=== PATIENT | female | born 1960 | race Caucasian/White ===

== ENCOUNTER 2017-02-04 10:33 | Emergency (ER) | payer OTHER ==
[~2017-02-04] VITALS: Ht 162.6 cm; Wt 90.0 kg
[~2017-02-04 10:33] MED LIST: ACIPHEX20 MG PO; ALLEGRA60 MG PO; AMOXICILLIN/CL875 MG PO; ANTI-FUNGAL12 TOP; ATENOLOL25 MG PO; AUGMENTIN875 MG PO; AUGMENTIN875TAB PO; BACLOFEN10 MG PO; BENZONATATE200 MG PO; BUSPIRONE5 MG PO; CALCIUM + D600 MG PO; CALCIUM600 M2 OR; CARAFATE1 GM PO; CLARITIN10 M1 PO; COZAAR50 MG PO; CYCLOBENZAPR10 MG PO; DIFLUCAN150 MG OR; DIFLUCAN150 MG PO; DOXYCYCL HYC100 MG PO; ENALAPRIL20 MG OR; EQ IBUPROFEN200 MG PO; FLEXERIL PO; FLEXERIL10 MG PO; FLONASE NASAL50 MCG; FLORASTOR250 M1 PO; GABAPENTIN300 MG PO; GLIPIZIDE5 M2 PO; GYNE-LOTRIMIN1 % VA; HYCODAN5 MG PO; IBUPROFEN200 M1 OR; IBUPROFEN200 MG PO; IBUPROFEN800 MG PO; K-DUR/KLOR-CON10 MEQ OR; KEFLEX500 M1 PO; KEFLEX500 MG PO; LASIX20 MG PO; LASIX40 MG OR; LIDOCAINE; LORTAB 5 OR; LORTAB5 OR; MEDDOSEPAK PO; METFORMIN HCL1000 MG PO; METFORMIN1000 MG PO; METFORMIN500 M2 OR; METFORMIN500 MG PO; MOTRIN800 MG PO; MULTIVITAM10 PO; NORCO1 TA1 PO; OMEPRAZOLE20 MG OR; OMEPRAZOLE40 MG PO; PATANASE0.6 % NAS; PHENERGAN12.5 MG/TA PO; PHENERGAN25 MG/ML IM; PREDNISONE20 MG PO; PROMETHAZINE25 MG OR; PROTONIX40 M2 PO; RANITIDINE150 M1 PO; RANITIDINE75 M1 PO; REGLAN10 MG OR; REGLAN10 MG PO; ROBITUSSIN200 MG/10 PO; SIMVASTATIN10 MG OR; SIMVASTATIN40 MG PO; SINGULAIR10 MG PO; TESSALON PER100 MG PO; TESSALON200 MG PO; TRAMADOL HCL50 MG PO; TRAMADOL HYDROC50 MG PO; VALIUM5 MG PO; VENLAFAXINE37.5 M2 PO; VITAMIN D2000 UNIT OR; VITAMIN D32000 UNIT PO; VITAMIN OR; XYZAL5 MG PO; ZITHROMAX250 MG PO; ZITHROMAX500 MG PO; ZPAK OR; ZPAK PO; ZYRTEC-D AL1 OR; ZYRTEC10 M5 PO; ZYRTEC10 MG OR; ZYRTEC10 MG PO; [UNRECOGNIZED DRUG - OTHER] VA
[2017-02-04 11:07] LABS: HEMATOCRIT 45.5 % (37.0-47.0); IMMATURE GRANULOCYTES 0.3 % (0.0-1.0); MEAN CELL VOLUME 85.4 fL CALC (80.0-100.0); MEAN CORPUSCULAR HGB 28.1 pG CALC (26.0-32.0); NEUT# 4.56 thou/uL (2.00-7.15); RED BLOOD COUNT 5.33 mill/uL (4.20-5.60); RED CELL DISTRI WIDTH 13.2 % (11.5-15.5)
[2017-02-04 11:17] LABS: ALBUMIN 4.7 g/dL (3.2-5.0); ALKALINE PHOSPHATASE 110 u/l (38-126); ANION GAP 16 (6-22 (CALC)); BILIRUBIN, TOTAL 0.4 mg/dL (0.0-1.4); BUN 14 mg/dL (7-17); BUN/CREATININE RATIO 21 (12-20 (CALC)); CALCIUM 9.6 mg/dL (8.4-10.2); CARBON DIOXIDE 27 mmol/l (22-30); CHLORIDE 103 mmol/l (95-108); CREATININE 0.7 mg/dL (0.5-1.0); GFR > 60 ML/MIN (>=60 (CALC)); GFR FOR AFR.AMER. > 60 ML/MIN (>=60 (CALC)); GLUCOSE 186 mg/dL (65-105); POTASSIUM 4.2 mmol/l (3.5-5.1); SGOT/AST 24 u/l (14-36); SGPT/ALT 39 u/l (9-52); SODIUM 141 mmol/l (137-146); TOTAL PROTEIN 8.1 g/dL (6.3-8.2)
[2017-02-04 11:29] LABS: MYOGLOBIN 28 ng/mL (0 - 62)
[2017-02-04 12:55] VITALS: BP 139/67
[2017-02-04] MEDS ORDERED: EC-NAPROSYN500 MG PO (13:02)
[2017-02-04] MEDS ORDERED: FLEXERIL PO (13:02)
[2017-02-04] MEDS ORDERED: TRAMADOL HYDROC50 MG PO (13:02)
== END 2017-02-04 13:18 | disposition left against medical advice (07) | DRG 313 ==
LOC: ED 10:33
PROVIDERS: Emergency Medicine
DX: R07.9 Chest pain, unspecified (principal); E11.40 Type 2 diabetes mellitus with diabetic neuropathy, unspecified; G35 Multiple sclerosis; K21.9 Gastro-esophageal reflux disease without esophagitis; Z85.048 Personal history of other malignant neoplasm of rectum, rectosigmoid junction, and anus; Z91.19 Patient's noncompliance with other medical treatment and regimen

== ENCOUNTER 2017-07-16 13:11 | Emergency (ER) | payer OTHER ==
[~2017-07-16] VITALS: Ht 162.6 cm; Wt 113.6 kg
[~2017-07-16 13:11] MED LIST changes: +EC-NAPROSYN500 MG PO
[2017-07-16 13:25] VITALS: BP 134/65
[2017-07-16 14:44] LABS: ALBUMIN 4.4 g/dL (3.2-5.0); ALKALINE PHOSPHATASE 88 u/l (38-126); ANION GAP 20 (6-22 (CALC)); BILIRUBIN, TOTAL 0.5 mg/dL (0.0-1.4); BUN 14 mg/dL (7-17); BUN/CREATININE RATIO 22 (12-20 (CALC)); CARBON DIOXIDE 22 mmol/l (22-30); CHLORIDE 102 mmol/l (95-108); CREATININE 0.6 mg/dL (0.5-1.0); GFR > 60 ML/MIN (>=60 (CALC)); GFR FOR AFR.AMER. > 60 ML/MIN (>=60 (CALC)); POTASSIUM 4.6 mmol/l (3.5-5.1); SGOT/AST 34 u/l (14-36); SGPT/ALT 42 u/l (9-52); SODIUM 139 mmol/l (137-146); TOTAL PROTEIN 7.5 g/dL (6.3-8.2)
[2017-07-16 15:15] LABS: HEMATOCRIT 42.4 % (37.0-47.0); IMMATURE GRANULOCYTES 0.3 % (0.0-1.0); MEAN CELL VOLUME 86.5 fL CALC (80.0-100.0); MEAN CORPUSCULAR HGB 28.6 pG CALC (26.0-32.0); NEUT# 4.1 thou/uL (2.00-7.15); RED BLOOD COUNT 4.9 mill/uL (4.20-5.60); RED CELL DISTRI WIDTH 12.8 % (11.5-15.5)
[2017-07-16] MEDS ORDERED: FLEXERIL PO (15:28)
[2017-07-16] MEDS ORDERED: TORADOL PO (15:28)
[2017-07-16] MEDS ORDERED: ULTRAM50 M1 PO (15:28)
== END 2017-07-16 15:50 | disposition home or self-care (01) | DRG 552 ==
LOC: ED 13:11
PROVIDERS: Emergency Medicine
DX: M62.830 Muscle spasm of back (principal); E11.9 Type 2 diabetes mellitus without complications; E78.5 Hyperlipidemia, unspecified
CPT/HCPCS: J3360

== ENCOUNTER 2017-10-31 12:36 | Emergency (ER) | payer OTHER ==
[~2017-10-31] VITALS: Ht 162.6 cm; Wt 116.0 kg
[~2017-10-31 12:36] MED LIST changes: +TORADOL PO; +ULTRAM50 M1 PO
[2017-10-31] MEDS ORDERED: CARAFATE1 GM PO (12:46)
[2017-10-31 12:56] VITALS: BP 159/97
[2017-10-31] MEDS ORDERED: TORADOL PO (14:04)
== END 2017-10-31 14:20 | disposition home or self-care (01) | DRG 563 ==
LOC: ED 12:36
DX: S92.512A Displaced fracture of proximal phalanx of left lesser toe(s), initial encounter for closed fracture (principal); W01.0XXA Fall on same level from slipping, tripping and stumbling without subsequent striking against object, initial encounter; Y93.01 Activity, walking, marching and hiking; Y92.009 Unspecified place in unspecified non-institutional (private) residence as the place of occurrence of the external cause

== ENCOUNTER 2017-12-20 11:39 | Observation (INO) | payer OTHER ==
[~2017-12-20] VITALS: Ht 162.6 cm; Wt 114.0 kg
[2017-12-20 12:43] LABS: HEMATOCRIT 43.1 % (37.0-47.0); HEMOGLOBIN 14.4 g/dl (12.0-16.0); IMMATURE GRANULOCYTES 0.2 % (0.0-5.0); MEAN CELL VOLUME 85.5 fL CALC (80.0-100.0); MEAN CORPUSCULAR HGB 28.6 pG CALC (26.0-32.0); MEAN CORPUSCULAR HGB CONC 33.4 g/L CALC (32.0-36.0); NEUT# 3.63 thou/uL (2.00-7.15); RED BLOOD COUNT 5.04 mill/uL (4.20-5.60)
[2017-12-20 12:49] LABS: ALBUMIN 4.5 g/dL (3.2-5.0); ALKALINE PHOSPHATASE 94 u/l (38-126); AMYLASE 63 u/l (30-110); ANION GAP 19 (6-22 (CALC)); BILIRUBIN, TOTAL 0.5 mg/dL (0.0-1.4); BUN 9 mg/dL (7-17); BUN/CREATININE RATIO 16 (12-20 (CALC)); CARBON DIOXIDE 22 mmol/l (22-30); CHLORIDE 101 mmol/l (95-108); CREATININE 0.6 mg/dL (0.5-1.0); GFR > 60 ML/MIN (>=60 (CALC)); GFR FOR AFR.AMER. > 60 ML/MIN (>=60 (CALC)); LIPASE 156 u/l (23-300); POTASSIUM 4.3 mmol/l (3.5-5.1); SGOT/AST 47 u/l (14-36); SGPT/ALT 32 u/l (9-52); SODIUM 138 mmol/l (137-146); TOTAL PROTEIN 7.8 g/dL (6.3-8.2)
[2017-12-20 13:02] LABS: MYOGLOBIN 31 ng/mL (0 - 62)
[2017-12-20 13:18] LABS: URINE BILIRUBIN - DIPSTICK NEGATIVE (NEGATIVE); URINE BLOOD DIPSTICK NEGATIVE (NEGATIVE); URINE CLARITY CLEAR; URINE COLOR YELLOW; URINE GLUCOSE - DIPSTICK NEGATIVE (NEGATIVE); URINE KETONE NEGATIVE (NEGATIVE); URINE LEUK ESTERASE NEGATIVE (NEGATIVE); URINE NITRITE - DIPSTICK NEGATIVE (Negative); URINE PROTEIN - DIPSTICK NEGATIVE (NEG-TRACE); URINE SPECIFIC GRAVITY <=1.005; URINE UROBILINOGEN - DIPSTICK 0.2 E.U./dL (0.2)
[2017-12-20] MEDS ORDERED: GLIPIZIDE5 MG PO ×2 (13:32→13:33)
[2017-12-20] MEDS ORDERED: NOVOLIN N100 UNIT/2 SC (13:32)
[2017-12-20] MEDS ORDERED: MULTI VIT PO (13:33)
[2017-12-20] MEDS ORDERED: MSM1000 M1 PO (13:34)
[2017-12-20 14:23] VITALS: BP 127/76
[2017-12-20 16:30] VITALS: BP 127/68
[2017-12-20 19:00] VITALS: BP 131/67
[2017-12-21] VITALS: BP 119/78
[2017-12-21 05:36] VITALS: BP 104/76
[2017-12-21 08:20] VITALS: BP 120/67
[2017-12-21 11:15] VITALS: BP 123/51
== END 2017-12-21 11:44 | disposition home or self-care (01) | DRG 313 ==
LOC: ED 11:39 → ED-I 13:15 → ED 13:31 → MS2 13:32
PROVIDERS: Emergency Medicine; ADMIT Internal Medicine Nephrology; ATTEND Internal Medicine Nephrology
DX: R07.9 Chest pain, unspecified (principal); Z68.41 Body mass index [BMI] 40.0-44.9, adult; E11.43 Type 2 diabetes mellitus with diabetic autonomic (poly)neuropathy; K31.84 Gastroparesis; K21.9 Gastro-esophageal reflux disease without esophagitis; E78.5 Hyperlipidemia, unspecified; I10 Essential (primary) hypertension; E66.01 Morbid (severe) obesity due to excess calories; Z85.89 Personal history of malignant neoplasm of other organs and systems
CPT/HCPCS: J3360

== ENCOUNTER 2018-05-14 19:53 | Emergency (ER) | payer OTHER ==
[~2018-05-14] VITALS: Ht 162.6 cm; Wt 119.5 kg
[~2018-05-14 19:53] MED LIST changes: +GLIPIZIDE5 MG PO; +MSM1000 M1 PO; +MULTI VIT PO; +NOVOLIN N100 UNIT/2 SC
[2018-05-14 20:45] LABS: URINE BLOOD DIPSTICK NEGATIVE (NEGATIVE); URINE COLOR YELLOW; URINE GLUCOSE - DIPSTICK 250 mg/dL (NEGATIVE); URINE KETONE 15 mg/dL (NEGATIVE); URINE LEUK ESTERASE NEGATIVE (NEGATIVE); URINE NITRITE - DIPSTICK NEGATIVE (Negative); URINE PH 5.5 (4.5-8.0); URINE PROTEIN - DIPSTICK 30 mg/dL (NEG-TRACE); URINE SPECIFIC GRAVITY >=1.030; URINE UROBILINOGEN - DIPSTICK 0.2 E.U./dL (0.2)
[2018-05-14 20:47] LABS: HEMATOCRIT 42.9 % (37.0-47.0); HEMOGLOBIN 14.1 g/dl (12.0-16.0); IMMATURE GRANULOCYTES 0.5 % (0.0-5.0); MEAN CELL VOLUME 85.8 fL CALC (80.0-100.0); MEAN CORPUSCULAR HGB 28.2 pG CALC (26.0-32.0); MEAN CORPUSCULAR HGB CONC 32.9 g/L CALC (32.0-36.0); NEUT# 6.5 thou/uL (2.00-7.15); RED CELL DISTRI WIDTH 13.3 % (11.5-15.5)
[2018-05-14 20:54] LABS: ALBUMIN 4.5 g/dL (3.2-5.0); ALKALINE PHOSPHATASE 111 u/l (38-126); AMYLASE < 30 u/l (30-110); ANION GAP 19 (6-22 (CALC)); BILIRUBIN, TOTAL 0.7 mg/dL (0.0-1.4); BUN 11 mg/dL (7-17); BUN/CREATININE RATIO 17 (12-20 (CALC)); CARBON DIOXIDE 24 mmol/l (22-30); CHLORIDE 98 mmol/l (95-108); CREATININE 0.6 mg/dL (0.5-1.0); GFR > 60 ML/MIN (>=60 (CALC)); GFR FOR AFR.AMER. > 60 ML/MIN (>=60 (CALC)); LIPASE 87 u/l (23-300); POTASSIUM 3.7 mmol/l (3.5-5.1); SGOT/AST 81 u/l (14-36); SODIUM 137 mmol/l (137-146); TOTAL PROTEIN 7.4 g/dL (6.3-8.2)
[2018-05-14 21:43] LABS: URINE BILIRUBIN - DIPSTICK SMALL (NEGATIVE); URINE SQUAMOUS EPITHELIAL CELL FEW EPI/hpf (0-FEW)
[2018-05-14] MEDS ORDERED: LOMOTIL2.5 MG PO (21:48)
[2018-05-14] MEDS ORDERED: PHENERGAN25 MG/TAB PO (21:48)
[2018-05-14 22:16] VITALS: BP 130/58
== END 2018-05-14 22:16 | disposition home or self-care (01) | DRG 392 ==
LOC: ED 19:53
PROVIDERS: Family Medicine
DX: A08.4 Viral intestinal infection, unspecified (principal); E78.5 Hyperlipidemia, unspecified; E11.43 Type 2 diabetes mellitus with diabetic autonomic (poly)neuropathy; K31.84 Gastroparesis; F17.290 Nicotine dependence, other tobacco product, uncomplicated

== ENCOUNTER 2019-08-10 | Day surgery (SDC) | payer OTHER ==
[~2019-08-10] MED LIST changes: +ATENOLOL50 MG PO; +LOMOTIL2.5 MG PO; +OMEPRAZOLE DR40 MG; +OTEZLA 10 & 201 TAB PO; +PHENERGAN25 MG/TAB PO; +VITAMIN D2000 UNI1 PO
[2019-08-10 08:44] LABS: HEMATOCRIT 41.8 % (37.0-47.0); HEMOGLOBIN 13.4 g/dl (12.0-16.0); IMMATURE GRANULOCYTES 0.1 % (0.0-5.0); MEAN CELL VOLUME 84.6 fL CALC (80.0-100.0); MEAN CORPUSCULAR HGB 27.1 pG CALC (26.0-32.0); MEAN CORPUSCULAR HGB CONC 32.1 g/dL CAL (32.0-36.0); NEUT# 4.6 thou/uL (2.00-7.15); RED BLOOD COUNT 4.94 mill/uL (4.20-5.60); RED CELL DISTRI WIDTH 13.8 % (11.5-15.5)
[2019-08-10 09:07] LABS: ALBUMIN 3.8 g/dL (3.2-5.0); ALKALINE PHOSPHATASE 97 u/l (38-126); ANION GAP 12 (6-22 (CALC)); BUN 7 mg/dL (7-17); BUN/CREATININE RATIO 11 (12-20 (CALC)); CARBON DIOXIDE 25 mmol/l (22-30); CHLORIDE 104 mmol/l (95-108); CREATININE 0.6 mg/dL (0.5-1.0); GFR > 60 ML/MIN (>=60 (CALC)); GFR FOR AFR.AMER. > 60 ML/MIN (>=60 (CALC)); POTASSIUM 4.2 mmol/l (3.5-5.1); SGOT/AST 23 u/l (14-36); SODIUM 136 mmol/l (137-146); TOTAL PROTEIN 6.7 g/dL (6.3-8.2)
[2019-08-10 09:08] LABS: BILIRUBIN, TOTAL 0.3 mg/dL (0.0-1.4)
[2019-08-10] MEDS ORDERED: PERCOCET 5/325M1 TAB PO (09:59)
== END 2019-08-10 10:36 | disposition home or self-care (01) | DRG 572 ==
PROVIDERS: Nurse Anesthetist, Certified Registered
PROC: 0JBC0ZZ Excision of Pelvic Region Subcutaneous Tissue and Fascia, Open Approach (ICD-10-PCS; principal; 2019-08-10)
DX: L72.8 Other follicular cysts of the skin and subcutaneous tissue (principal); E11.9 Type 2 diabetes mellitus without complications; I10 Essential (primary) hypertension; Z79.4 Long term (current) use of insulin; Z11.59 Encounter for screening for other viral diseases

== ENCOUNTER 2020-02-20 08:42 | Observation (INO) | payer OTHER ==
[~2020-02-20] VITALS: Ht 162.6 cm; Wt 135.2 kg
[~2020-02-20 08:42] MED LIST changes: +PERCOCET 5/325M1 TAB PO
--- NOTE | 2020-02-20 08:42 | NUR ---
PT AMBULATORY TO ROOM 12 WITH STEADY GAIT. BEDSDIE TRIAGE COMPLETED
--- NOTE | 2020-02-20 09:20 | NUR ---
COVID SWAB COLLECTED, ISOLATION PRECAUTIONS INITIATED.
[2020-02-20 09:39] LABS: HEMATOCRIT 40.1 % (37.0-47.0); HEMOGLOBIN 12.7 g/dl (12.0-16.0); IMMATURE GRANULOCYTES 0.2 % (0.0-5.0); MEAN CELL VOLUME 85.1 fL CALC (80.0-100.0); MEAN CORPUSCULAR HGB CONC 31.7 g/dL CAL (32.0-36.0); NEUT# 2.66 thou/uL (2.00-7.15); RED BLOOD COUNT 4.71 mill/uL (4.20-5.60); RED CELL DISTRI WIDTH 13.7 % (11.5-15.5)
[2020-02-20 10:02] LABS: ALBUMIN 3.8 g/dL (3.2-5.0); ALKALINE PHOSPHATASE 113 u/l (38-126); ANION GAP 12 (6-22 (CALC)); BILIRUBIN, TOTAL 0.3 mg/dL (0.0-1.4); BUN 6 mg/dL (7-17); BUN/CREATININE RATIO 10 (12-20 (CALC)); CARBON DIOXIDE 24 mmol/l (22-30); CHLORIDE 104 mmol/l (95-108); CREATININE 0.6 mg/dL (0.5-1.0); GFR > 60 ML/MIN (>=60 (CALC)); GFR FOR AFR.AMER. > 60 ML/MIN (>=60 (CALC)); POTASSIUM 4.3 mmol/l (3.5-5.1); SGOT/AST 26 u/l (14-36); SODIUM 136 mmol/l (137-146); TOTAL PROTEIN 6.5 g/dL (6.3-8.2)
[2020-02-20] MEDS ORDERED: NOVOLIN R RELION SC (10:03)
--- NOTE | 2020-02-20 10:07 | NUR ---
PT AMBULATED TO BATHROOM WITH STEADY GAIT.
--- NOTE | 2020-02-20 11:00 | NUR ---
MD AT BEDSIDE TO DISCUSS RESULTS AND POC.
--- NOTE | 2020-02-20 12:20 | NUR ---
MEDICATED WITH TYLENOL 650MG PO FOR C/O 12/20 HEADACHE.
--- NOTE | 2020-02-20 13:02 | NUR ---
GARY WELLS AT BEDSIDE TO DISCUSS RESULTS AND POC.
--- NOTE | 2020-02-20 13:15 | NUR ---
NURSE TO NURSE REPORT CALLED TO HO[facility]ON.
--- NOTE | 2020-02-20 13:25 | NUR ---
PT ARRIVED TO [facility] ROOM 282 VIA WHEELCHAIR ACCOMPAINED BY ER STAFF. PT AMBULATED FROM WHEELCHAIR TO BED WITH LITTLE DIFFICULTY. INTRODUCED SELF TO PT AND DISCUSSED POC. PT IS A/O X3. ASSESSMENT AND VITALS OBTAINED AT THIS TIME. BP 144/74, HR 75, O2 99% ON ROOM AIR. RESPIRATIONS ARE EVEN AND UNLABORED WITH NO DISTRESS NOTED. LUNG SOUNDS ARE CLEAR. HEART RHYTHM NORMAL WITH TELE IN PLACE, SR 74. RADIAL AND PEDAL PUSLES ARE STRONG WITH NORMAL CAPILLARY REFILL. #20G IN RH FLUSHED,SIET APPEARS HEALTHY AND PATENT. PT COMPLAINS OF 4/10 HEADACHE.TYLENOL ADMINISTERED PRIOR TO ARRIVAL TO FLOOR. WRITTER INFORMED OF PT ALLERGIES, ALLERGY BAND APPLIED. BLOOD SUGAR RESUTLING IN 94. WRITTER INFORMED THAT PT PRESETNT TO [facility] FOR FEVER, COUGH AND SOB WITH CONGESTION FOR ABOUT A WEEK, ISOLATION PRECAUTIONS IN PLACE. PT REQUEST LUNCH TRAY. DIETARY CALLED. PT DENIES OF ANY ADDITONAL NEEDS AT THIS TIME. PT ORIENTED TO ROOM AND CALL LIGHT SYSTEM. ALL SAFETY AND ISOLATION PRECAUTIONS ARE IN PLACE, WILL CONTINUE TO MONITOR
--- NOTE | 2020-02-20 13:25 | NUR ---
TO MED SURG VIA WHEELCHAIR, ALL BELONGINGS SENT WITH PT.
[2020-02-20 13:32] VITALS: BP 144/74
--- NOTE | 2020-02-20 15:57 | NUR ---
PT RESTING IN SEMI FOWLERS POSITION ON PHONE. RESPIRATIONS ARE EVEN AND UNLABORED WITH NO SIGNS OF DISTRESS NOTED. PT DENIES OF ANY PAIN OR ADDITIONAL NEEDS AT THIS TIME. ALL SAFETY PRECAUTIONS ARE IN PLACE WITH CALL LIGHT IN REACH. WILL CONTINUE TO MONITOR
[2020-02-20 18:58] VITALS: BP 149/68
--- NOTE | 2020-02-20 19:30 | NUR ---
PATIENT RESTING IN BED WATCHING TV. AWAKE ALERT AND ORIENTEDX3. PATIENT WITH NO COMPLAINTS AT THIS TIME. DENIES ANY PAIN. TELE MONITOR IN PLACE. SALINE LOCK TO LEFT HAND INTACT AND APPEARS HEALTHY. OCC COUGH NOTED. PATIENT IN NEG PRESSURE ROOM AND ON ISOLATION AWAITING TESTING RESULTS. SAFETY PRECAUTIONS REINFORCED. CALL LIGHT IN REACH. WILL CONT TO MONITOR.
--- NOTE | 2020-02-20 22:00 | NUR ---
PATIENT RESTING IN KMS-EEIN-QHJEL WAS 308-PATIENT WAS MEDICATED WITH HUMULIN N 40UNITS SCHEDULED TONIGHT. NO SS COVERAGE IS ORDERED AT THIS TIME. HS SNACK WAS PROVIDED. PATIENT REFUSED TO TAKE LIPITOR, REGLAN, AND ATENOLOL-STATES THAT SHE ALREADY TOOK THESE MEDS AT HOME BEFORE SHE CAME IN. CALL LIGHT IN REACH. WILL CONT TO MONITOR.
[2020-02-21] VITALS: BP 153/70
--- NOTE | 2020-02-21 02:02 | NUR ---
PATIENT RESTING IN BED AT THIS TIME IN NEG PRESSURE ROOM ON ISOLATION AWAITING COVID SWAB. PATIENT IS AWAKE ALERT AND ORIENTEDX3. PATIENT WITH NO COMPLAINTS AT THIS TIME, TELE MONITOR IN PLACE. SALINE LOCK TO LEFT HAND INTACT AND HEALTHY AT THIS TIME. PATIENT DENIES ANY DIFFICULTY WITH URINATION. STATES THAT SHE HAD BM TODAY. ABD IS SOFT WITH BS PRESENT. LUNGS ARE CLEAR. NO PERIPHERAL EDEMA NOTED AND PULSES ARE PALPABLE. SAFETY PRECATUIONS REINFORCED. CALL LIGHT IN REACH. WILL CONT TO MONITOR.
[2020-02-21 04:00] VITALS: BP 151/84
[2020-02-21 05:30] LABS: HEMATOCRIT 42.3 % (37.0-47.0); HEMOGLOBIN 13.3 g/dl (12.0-16.0); IMMATURE GRANULOCYTES 0.2 % (0.0-5.0); MEAN CELL VOLUME 84.4 fL CALC (80.0-100.0); MEAN CORPUSCULAR HGB 26.5 pG CALC (26.0-32.0); MEAN CORPUSCULAR HGB CONC 31.4 g/dL CAL (32.0-36.0); NEUT# 3.55 thou/uL (2.00-7.15); RED BLOOD COUNT 5.01 mill/uL (4.20-5.60); RED CELL DISTRI WIDTH 13.7 % (11.5-15.5)
[2020-02-21 05:58] LABS: ALKALINE PHOSPHATASE 123 u/l (38-126); ANION GAP 15 (6-22 (CALC)); BILIRUBIN, TOTAL 0.4 mg/dL (0.0-1.4); BUN 9 mg/dL (7-17); BUN/CREATININE RATIO 16 (12-20 (CALC)); CALCULATED LDLCHOLESTEROL 125 mg/dL (62-129 (CALC)); CARBON DIOXIDE 24 mmol/l (22-30); CHLORIDE 103 mmol/l (95-108); CHOLESTEROL HDL RATIO 4.7 (<4.4 (CALC)); CREATININE 0.6 mg/dL (0.5-1.0); GFR > 60 ML/MIN (>=60 (CALC)); GFR FOR AFR.AMER. > 60 ML/MIN (>=60 (CALC)); HDL CHOLESTEROL 40 mg/dL (>=40); MAGNESIUM 1.8 mg/dL (1.6-2.3); POTASSIUM 4.6 mmol/l (3.5-5.1); SGOT/AST 22 u/l (14-36); SODIUM 137 mmol/l (137-146); TOTAL CHOLESTEROL 191 mg/dl (0-199); TOTAL PROTEIN 6.9 g/dL (6.3-8.2); TOTAL TRIGLYCERIDES 127 mg/dl (30-149); VLDL CHOLESTROL 25 mg/dl (2-49 (CALC))
[2020-02-21 08:10] VITALS: BP 168/84
--- NOTE | 2020-02-21 08:10 | NUR ---
ASSESSMENT IS COMPLTED: IV SITE IS FREE FROM REDNESS OR EDEMA. HR IS REG, PULSES ARE STRONG X4, ABD IS SOFT WITH ACTIVE BS. BREATH SOUNDS ARE CLEAR BILATERALLY, NO C/O SOB. ONLY HEADACHE THIS AM. TELE MONITOR IN PLACE.
[2020-02-21 10:30] VITALS: BP 101/56
[2020-02-21] MEDS ORDERED: ZITHROMAX250 MG PO (12:12)
[2020-02-21] MEDS ORDERED: CYCLOBENZAPRINE10 MG PO (12:13)
[2020-02-21] MEDS ORDERED: DEXAMETHASON6 MG PO (12:14)
--- NOTE | 2020-02-21 12:45 | NUR ---
PT WAITING FOR DISCHARGE INSTRUCTONS IV SITE IS FREE FROM REDNESS OR EDEMA. CONTINUE TO OSBERVE AND MONITOR.
--- NOTE | 2020-02-21 13:00 | NUR ---
IV SITE DISCONTIENEUD CATHETER INTACT. NO REDNESS OR EDEMA. DISCHARGE INSTRUCTION SGIVEN AND VERBALIZED UNDERSTANDING. ALL PAPERS AND EDUCATION WAS GIVEN TO PT. PT TRANSPORTED TO HER OWN CAR. Discharge instructions given. Patient verbalizes understanding of same. Discharged in stable condition via Wheelchair to Home with family. All belongings sent with pt.
== END 2020-02-21 13:02 | disposition home or self-care (01) | DRG 179 ==
LOC: ED 08:42 → ED-I 10:30 → ED 10:47 → MS2 10:48 → ED 10:48 → MS2 10:48 → ED-I 10:48 → MS2 02-21 13:02
PROVIDERS: Family Medicine; Nurse Practitioner; ADMIT Internal Medicine; ATTEND Internal Medicine
DX: U07.1 COVID-19 (principal); R07.89 Other chest pain; I10 Essential (primary) hypertension; G35 Multiple sclerosis; E11.43 Type 2 diabetes mellitus with diabetic autonomic (poly)neuropathy; K31.84 Gastroparesis; K21.9 Gastro-esophageal reflux disease without esophagitis; E11.40 Type 2 diabetes mellitus with diabetic neuropathy, unspecified; E78.5 Hyperlipidemia, unspecified; Z79.4 Long term (current) use of insulin
CPT/HCPCS: G0378; J1650

== ENCOUNTER 2020-07-16 | Emergency (ER) | payer OTHER ==
[~2020-07-16] MED LIST changes: +CYCLOBENZAPRINE10 MG PO; +DEXAMETHASON6 MG PO; +NOVOLIN R RELION SC
== END 2020-07-16 16:53 | disposition home or self-care (01) | DRG 921 ==
DX: T81.31XA Disruption of external operation (surgical) wound, not elsewhere classified, initial encounter (principal); I10 Essential (primary) hypertension; E11.43 Type 2 diabetes mellitus with diabetic autonomic (poly)neuropathy; K31.84 Gastroparesis; E78.5 Hyperlipidemia, unspecified; J45.909 Unspecified asthma, uncomplicated; F17.200 Nicotine dependence, unspecified, uncomplicated; Y83.8 Other surgical procedures as the cause of abnormal reaction of the patient, or of later complication, without mention of misadventure at the time of the procedure; Z79.4 Long term (current) use of insulin

== ENCOUNTER 2022-03-11 15:53 | Emergency (ER) | payer OTHER ==
[2022-03-11] VITALS (15 sets, daily range): BP systolic 123–166; BP diastolic 49–90
[~2022-03-11] VITALS: Ht 162.6 cm; Wt 120.4 kg
[2022-03-11 16:59] LABS: HEMATOCRIT 40.5 % (37.0-47.0); HEMOGLOBIN 13.3 g/dl (12.0-16.0); MEAN CELL VOLUME 85.3 fL CALC (80.0-100.0); MEAN CORPUSCULAR HGB CONC 32.8 g/dL CAL (32.0-36.0); NEUT# 4.37 thou/uL (2.00-7.15); RED BLOOD COUNT 4.75 mill/uL (4.20-5.60); RED CELL DISTRI WIDTH 12.9 % (11.5-15.5)
[2022-03-11 17:20] LABS: ALBUMIN 3.7 g/dL (3.2-5.0); ALKALINE PHOSPHATASE 97 u/l (38-126); ANION GAP 12 (6-22 (CALC)); BILIRUBIN, TOTAL 0.3 mg/dL (0.0-1.4); BUN 14 mg/dL (7-17); BUN/CREATININE RATIO 19 (12-20 (CALC)); C-REACTIVE PROTEIN 1.5 mg/dL (0-0.9); CARBON DIOXIDE 27 mmol/l (22-30); CHLORIDE 100 mmol/l (95-108); CREATININE 0.7 mg/dL (0.5-1.0); GFR FOR AFR.AMER. > 60 ML/MIN (>=60 (CALC)); GFR OTHER RACES > 60 ML/MIN (>=60 (CALC)); POTASSIUM 4.6 mmol/l (3.5-5.1); SGOT/AST 73 u/l (14-36); SODIUM 135 mmol/l (137-146); TOTAL PROTEIN 6.4 g/dL (6.3-8.2)
[2022-03-11] MEDS ORDERED: HYDROCO/APAP1 TA9 PO (19:26)
[2022-03-11] MEDS ORDERED: BACTRIM DS1 TAB PO (19:26)
== END 2022-03-11 20:00 | disposition home or self-care (01) | DRG 603 ==
LOC: ED 15:53
PROVIDERS: Nurse Practitioner
DX: L03.317 Cellulitis of buttock (principal); Z79.4 Long term (current) use of insulin; E11.9 Type 2 diabetes mellitus without complications; I10 Essential (primary) hypertension; Z85.048 Personal history of other malignant neoplasm of rectum, rectosigmoid junction, and anus; Z85.89 Personal history of malignant neoplasm of other organs and systems; J45.909 Unspecified asthma, uncomplicated
CPT/HCPCS: Q9967

== ENCOUNTER 2022-10-28 12:14 | Emergency (ER) | payer OTHER ==
[~2022-10-28] VITALS: Ht 162.6 cm; Wt 122.5 kg
[2022-10-28] VITALS (7 sets, daily range): BP systolic 101–139; BP diastolic 54–72
[~2022-10-28 12:14] MED LIST changes: +BACTRIM DS1 TAB PO; +HYDROCO/APAP1 TA9 PO
[2022-10-28 13:09] LABS: BASO% 0.4 % (0-3); EOS% 1.3 % (0-8); HEMATOCRIT 45.4 % (37.0-47.0); HEMOGLOBIN 14.2 g/dl (12.0-16.0); IMMATURE GRANULOCYTES 0.1 % (0.0-5.0); LYMPH% 27.3 % (15-41); MEAN CELL VOLUME 86.5 fL CALC (80.0-100.0); MEAN CORPUSCULAR HGB CONC 31.3 g/dL CAL (32.0-36.0); MONO% 6.9 % (2-13); NEUT# 4.99 thou/uL (2.00-7.15); RED BLOOD COUNT 5.25 mill/uL (4.20-5.60); RED CELL DISTRI WIDTH 13.3 % (11.5-15.5)
[2022-10-28 13:23] LABS: ALBUMIN 3.9 g/dL (3.2-5.0); ALKALINE PHOSPHATASE 117 u/l (38-126); ANION GAP 12 (6-22 (CALC)); BILIRUBIN, TOTAL 0.3 mg/dL (0.02-1.3); BUN 12 mg/dL (7-17); BUN/CREATININE RATIO 15 (12-20 (CALC)); CARBON DIOXIDE 26 mmol/l (22-30); CHLORIDE 103 mmol/l (95-108); CREATININE 0.8 mg/dL (0.5-1.0); GFR FOR AFR.AMER. > 60 ML/MIN (>=60 (CALC)); GFR OTHER RACES > 60 ML/MIN (>=60 (CALC)); POTASSIUM 4.6 mmol/l (3.5-5.1); SGOT/AST 64 u/l (14-36); SODIUM 136 mmol/l (137-146); TOTAL PROTEIN 7.2 g/dL (6.3-8.2)
[2022-10-28] MEDS ORDERED: NAPROXEN500 MG PO (15:32)
[2022-10-28] MEDS ORDERED: BENZONATATE200 MG PO (15:32)
[2022-10-28] MEDS ORDERED: ZPAK PO (15:32)
== END 2022-10-28 16:01 | disposition home or self-care (01) | DRG 203 ==
LOC: ED 12:14
PROVIDERS: Family Medicine
DX: J45.909 Unspecified asthma, uncomplicated (principal); I10 Essential (primary) hypertension; E11.43 Type 2 diabetes mellitus with diabetic autonomic (poly)neuropathy; K31.84 Gastroparesis; E78.5 Hyperlipidemia, unspecified; Z79.4 Long term (current) use of insulin; Z20.822 Contact with and (suspected) exposure to COVID-19